=== PATIENT | male | born 1980 | race Caucasian/White ===

== ENCOUNTER 2021-11-23 22:14 | Emergency (ER) | payer BC, SELFPAY ==
[2021-11-23] MEDS ORDERED: traMADol HCl 50 MG TAB ONE (22:50)
[2021-11-23 23:05] LABS: Bilirubin Negative (Negative); Blood, Urine Trace (Negative); Clarity Clear (Clear); Glucose, Urine (Dipstick) Negative (Negative); Ketone, Urine Negative (Negative); Leukocyte Negative (Negative); Nitrite Negative (Negative); Protein, Urine (Dipstick) Negative (Neg-Trace); Urobilinogen 0.2 mg/dL (Less than 2); pH, Urine 6.5 (5.0-9.0)
[2021-11-23 23:07] LABS: RBC/HPF 0-3 HPF (0-3)
[2021-11-23 23:08] LABS: Bacteria/HPF None Seen HPF (None Seen); Mucous/LPF Rare LPF (<2+); Squamous Epithelial None Seen HPF (0-3); WBC/HPF None Seen HPF (0-3)
[2021-11-24 19:36] LABS: Chlam.trachomatis by PCR,Urine Not Detected (NotDetected)
== END 2021-11-23 23:13 | disposition short-term general hospital (02) ==
LOC: BURERS 22:14
DX: N45.1 Epididymitis (principal)
CPT/HCPCS: 81003; 81015; 87086; 87491; 87591; 99284